=== PATIENT | female | born 1940 | race Caucasian/White ===

== ENCOUNTER 2019-04-08 10:49 | Inpatient (IN) ==
[2019-04-08 13:08] LABS: Basophils # (auto) 0.02 K/uL (0-0.2); Basophils % (auto) 0.2 %; Eosinophils # (auto) 0.21 K/uL (0-0.5); Eosinophils % (auto) 2.1 %; Hematocrit (blood only) 47.5 % (37-47); Hemoglobin 16.4 g/dL (12.0-16.0); Immature Granulocytes # (auto) 0.03 K/uL (0.00-0.02); Immature Granulocytes % (auto) 0.3 %; Lymphocytes # (auto) 2.56 K/uL (1.2-3.4); Lymphocytes % (auto) 25.7 %; Mean Corpuscular Hgb Conc 34.5 g/dL (32-36); Mean Corpuscular Volume 89.8 fL (80-100); Mean Platelet Volume 10.3 fL (7.4-10.4); Monocytes # (auto) 0.57 K/uL (0.11-0.59); Monocytes % (auto) 5.7 %; Neutrophils # (auto) 6.59 K/uL (1.4-6.5); Platelet Count 226 K/uL (130-400); RDW Coefficient of Variation 12.3 % (11.5-14.5); Red Blood Count 5.29 M/uL (4.2-5.4); White Blood Count 9.98 K/uL (4.8-10.8)
[2019-04-08] MEDS ORDERED: ALBUT/IPRATROP 3MG/0.5MG NEB 3 ML VIAL NEB STA ×2 (13:09→16:26)
[2019-04-08] MEDS ORDERED: ONDANSETRON INJ 2 MG/ML 2 ML VIAL IV STA (13:09)
[2019-04-08] MEDS ORDERED: SODIUM CHLORIDE 0.9% 500 ML IV SCH (13:15)
[2019-04-08 13:25] LABS: Albumin Level 3.2 gm/dl (3.4-5.0); BUN Creatinine Ratio 18.1 (10-20); Calcium 8.9 mg/dl (8.5-10.1); Creatinine Clr Calc Pharmacy 58.4 ml/min; Est GFR (African American) 98.5; Potassium 3.3 mmol/L (3.5-5.1)
[2019-04-08 13:28] LABS: Albumin Globulin Ratio 0.7 (0.9-2); Bilirubin,Total 1.2 mg/dl (0.2-1); Globulin 4.3 gm/dl (2.5-4.0); Total Protein 7.5 gm/dl (6.4-8.2)
[2019-04-08 13:29] LABS: Appearance Urine Clear (Clear); Bacteria Urine Automated Negative (Negative); Bilirubin Urine Negative (Negative); Blood Urine 2+ (Negative); Color Urine Yellow; Epithelial Cell Urine Auto >30 /lpf (0-5); Glucose Urine UA Negative (Negative); Ketones Urine Negative (Negative); Leukocyte Esterase Urine 1+ (Negative); Nitrite Urine Negative (Negative); Protein Urine Negative (Negative); Specific Gravity Urine 1.008 (1.000-1.030); Urobilinogen Urine Negative (Negative)
[2019-04-08 13:46] LABS: Troponin I 0.02 ng/ml (0-0.045)
--- NOTE | 2019-04-08 14:17 | XRay Report ---
TWO VIEW CHEST CLINICAL HISTORY: Cough. FINDINGS: PA and lateral chest radiographs are obtained No prior studies are available for comparison at the time of dictation. The cardiomediastinal silhouette is unremarkable noting atherosclerotic ca lcification of the thoracic aorta. There is bibasilar scarring/atelectasis. No airspace consolidation or pleural effusion is identified. There is no pneumothorax. The skeletal structures are osteopenic. Degenerative change is noted throughout the thoracic spine. The bony thorax appears intact. Cholecys tectomy clips are noted in the upper abdomen. IMPRESSION: No active disease in the chest. ACT 112: Negative or not required by law. Electronically signed by: Jimmie Barr M.D. 04/08/2019 2:16 PM
[2019-04-08] MEDS ORDERED: OPTIRAY 320 125ml IV PRN (15:20)
--- NOTE | 2019-04-08 15:37 | CT Scan Report ---
CT ANGIOGRAM OF THE CHEST CLINICAL HISTORY: Hypoxia. O2 sat of 86%. Possible pulmonary embolism. COUGH COMPARISON STUDY: Chest x-ray dated 04/08/2019 TECHNIQUE: Following the IV administration of 118 mL of Optiray-320, CT angiogram of the thorax was p erformed from the thoracic inlet to the lung bases utilizing the pulmonary embolus protocol. Images a re reviewed in the axial, sagittal, and coronal planes. IV contrast was administered without complica tion. MIP imaging was performed. A dose lowering technique was utilized adhering to the principles o f ALARA. CT DOSE: 596.90 mGy.cm FINDINGS: No pathologically enlarged axillary mediastinal or hilar lymph nodes were visualized. There is mild diffuse esophageal wall thickening. Clinical correlation regards to esophagitis is shilo mmended. There is a small hiatal hernia. There was no evidence of thoracic aortic dilatation. There are coronary artery calcifications. There were no pulmonary artery filling defects to indicate acute pulmonary embolism. No pleural effusions are visualized. There are dependent atelectatic changes. There is right middle l obe atelectasis/scarring. There is mild pulmonary emphysema. There is minimal bronchial wall thickeni ng with areas of left lower lobe mucus plugging. IMPRESSION: 1. No evidence of acute pulmonary embolism 2. Mild emphysema. 3. Mild bronchial wall thickening with areas of left lower lobe mucus plugging 4. Nonspecific diffuse esophageal wall thickening. Clinical correlation is advocated. 5. No evidence of pneumonia 6. Scattered areas of interstitial scarring/atelectasis ACT 112: Negative or not required by law. Electronically signed by: Macario Carvalho M.D. 04/08/2019 3:36 PM
--- NOTE | 2019-04-08 16:11 | Electrocardiogram Report ---
Test Reason : Blood Pressure : / mmHG Vent. Rate : 076 BPM Atrial Rate : 076 BPM P-R Int : 140 ms QRS Dur : 132 ms QT Int : 436 ms P-R-T Axes : 071 -46 083 degrees QTc Int : 490 ms Poor data quality, interpretation may be adversely affected Normal sinus rhythm Possible Left atrial enlargement Left axis deviation Left bundle branch block Abnormal ECG No previous ECGs available Confirmed by Xu Gonzalez ([id number]) on 04/08/2019 4:11:16 PM Referred By: REFERRED SELF Confirmed By:Xu Gonzalez
[2019-04-08] MEDS ORDERED: methylPREDNISolone 125 MG/2 ML VIAL IV STA (16:26)
[2019-04-08 17:50] LABS: Magnesium 1.7 mg/dl (1.8-2.4)
--- NOTE | 2019-04-08 18:04 | History & Physical Report ---
Date of Service April 08, 2019 Assessment & Plan (1) COPD exacerbation: (2) Acute respiratory failure with hypoxia: -Admit to [facility] with telemetry -Patient presenting from home with reports of cough and shortness of breath -Noted that patient had been on prednisone 5 mg daily for several years for psoriasis, this was recently discontinued about 3 weeks ago -Patient is an active smoker, 1 pack/day; no history of PFTs in the past however COPD is suspected -CTA chest negative for pulmonary embolism however showing mucus plugging -??? If symptoms caused by recent discontinuation of prednisone -Hypoxic on room air at 88%, this improved with 2 L of oxygen via nasal cannula; may need home O2 eval before discharge -S/p Solu-Medrol 60 mg in the ED, will continue the prednisone 40 mg p.o. daily starting tomorrow -Empiric IV ceftriaxone and doxycycline -Pulmonary toilet with nebs, flutter valve, incentive spirometer, chest PT -Pulmonary consult, input appreciated (3) Nausea vomiting and diarrhea: -Seems to be some component of posttussive emesis -Currently denying any GI complaints -Full liquid diet, advance as tolerated -Stool for C. difficile and culture (4) LBBB (left bundle branch block): (5) QT prolongation: -EKG shows LBBB; no EKGs to compare to at this time -No reports of chest pain -Records request from PCPs office for EKG comparison -QTC 490 -Daily EKG, avoid QTC prolonging agents (6) Hypertension: -BP currently controlled, continue losartan, metoprolol, HCTZ (7) Hyperlipidemia: -Continue statin (8) DVT prophylaxis: -SQ Lovenox History of Present Illness Chief Complaint: Cough, shortness of breath Primary Care Provider: Marjorie Presley 78-year-old female who presents the ED for evaluation of cough and shortness of breath. Patient reports her symptoms began about 2 weeks ago. She reports shortness of breath minimal exertion. She reports a cough productive for white sputum. Patient denies chest pain. Today, patient reports she had some nausea and a couple of episodes of diarrhea. No bright bleeding per rectum or dark tarry stools. She reports some vomiting associated with the coughing. Denies fevers and chills. No lightheadedness, dizziness, diaphoresis, syncopal events. She denies any urinary symptoms. In ED, patient was found to be hypoxic on room air at 88%. This improved with 2 L of oxygen via nasal cannula. CTA chest was negative for pulmonary embolism however show some mucous plugging. Patient was given 2 nebulizer treatments, Solu-Medrol 60 mg, Zofran, IVF. Allergies Allergy/AdvReac Type Severity Reaction Status Date / Time codeine AdvReac Fainting Unverified 04/08/19 12:25 Home Medications Home Medications Medication Instructions Recorded Confirmed Type atorvastatin 20 mg PO HS 04/08/19 04/08/19 History clobetasol 1 applic TOPICAL BID 04/08/19 04/08/19 History ergocalciferol (vitamin D2) 1,250 mcg PO FR 04/08/19 04/08/19 History [Vitamin D2] hydrochlorothiazide 12.5 mg PO DAILY 04/08/19 04/08/19 History hydroxyzine HCl 25 mg PO HS PRN 04/08/19 04/08/19 History losartan 100 mg PO DAILY 04/08/19 04/08/19 History metoprolol succinate 50 mg PO HS 04/08/19 04/08/19 History Past Med/Surg History Medical History COPD (chronic obstructive pulmonary disease) Cystocele Hyperlipidemia Hypertension Tobacco abuse Surgical History H/O rectocele repair History of appendectomy History of hysterectomy Hx of cholecystectomy Hx of tonsillectomy Family History Mother Heart disease Stroke Social History Preferred Language: [place] Communication Ability: Effective Beliefs That Will Affect Care: None Current Living Situation: Spouse Other Information That Helps Us Care for You: No Feels Safe at Home: Yes Safety Concerns: Feels Safe At This Time Smoking Status: Current every day smoker Tobacco Type: cigarettes ; Cigarettes Per Day: PACK/DAY ; Hx Alcohol Use: No Hx Substance Use: No Review of Systems Review of Systems: ROS per HPI, all other systems reviewed and negative Physical Exam Constitutional: WD/WN, vitals as above Eyes: PERRL, conjunctivae normal, anicteric sclerae ENMT: external ear and nose normal, oropharynx normal Respiratory: normal respiratory effort; no respiratory distress Auscultation: + diminished lung sounds and + rhonchi (Scattered) Cardiovascular: Rate/Rhythm: regular rate and regular rhythm Vessels: normal peripheral pulses Extremities: no edema Gastrointestinal (Abdomen): normal bowel sounds, soft, nontender, no hepatosplenomegaly Musculoskeletal: no cyanosis or clubbing, extremities motor strength 5/5 Skin: no rashes, warm and dry Scattered areas of psoriasis Neurologic: PERRL, EOMI, accommodation nl, no face palsy, no dysarthria Psychiatric: A+Ox3, euthymic affect Results & Data Vital Signs (Past 12 Hours) Vital Signs Temp Pulse Pulse Resp BP BP Pulse Ox 04/08/19 17:14 76 18 92 04/08/19 16:46 76 22 148/86 H 94 04/08/19 16:20 80 22 150/83 H 88 L 04/08/19 13:19 80 18 88 L 04/08/19 13:00 79 24 140/91 92 04/08/19 11:10 36.8 C 82 18 152/87 H 90 Code Status & VTE Plan Code Status Patient is a full code as per my discussion with her. VTE Prophylaxis Plan VTE Prophylaxis will be ordered: Yes Supervising Physician Co-Signing Physician Notes I saw this patient with the Nurse Practitioner, I participated in the history, physical, review of systems, and physical exam. I reviewed the medications with the patient and the Nurse Practitioner and helped reconcile the medications. I helped take a detailed family and social history as well. I formulated the assessment and plan personally with the Nurse Practitioner went over it with the patient. Physical Exam Gen-AAO x 3, NAD, Afebrile Head-NCAT, EOMI, PERRLA, Anicteric Sclera, No Posterior Pharyngeal Erythema Neck-Supple, No JVD, No Thyromegaly, No Masses, No LAD, No Bruits Lungs-+Wheezing, +Rhonchi, No Crepitus Chest-No S4, +S1, +S2, No S3, No Murmurs, No Rubs, No Gallops, No Ectopy Abdomen-Soft, Bowel Sounds Present, Non Tender, Non Distended, No Hepatomegaly, No Splenomegaly, No Palpable Masses, No Rebound, No Rigidity, No Guarding Musculoskeletal-Full Range of Motion Bilaterally, No CVAT Extremities-No Cyanosis, No Clubbing, No Edema Nuero-Cranial Nerves II-XII grossly intact, Motor WNL, DTRs WNL, Strength WNL, Non Focal Psych-Normal Mood
--- NOTE | 2019-04-08 18:28 | Emergency Department Note ---
Entered by Reid Marrufo acting as a scribe for Ezequiel Vazquez MD History of Present Illness General Chief complaint: Nausea Stated complaint: NAUSEA, DIARRHEA Time Seen by Provider: 04/08/19 13:02 Source: patient Limitations: no limitations History of Present Illness Onset (ago): day(s) (1.5) Location: abdomen Pain Consistency: + constant Current Pain Intensity: 0 Quality: + constant Associated symptoms: + denies other symptoms (abdominal pain, ), + nausea/vomiting, + shortness of breath and + other (diarrhea, congested, ); no chest pain and no fever/chills (fevers) The patient is a 78 year old female who presents to the Emergency Room with complaints of constant nausea starting 1.5 weeks ago. The patient states she has been having nausea and diarrhea for 1.5 weeks. She states the last time she had diarrhea was this morning when she had two episodes. She notes she has been having diarrhea multiple times a day. She states she vomited a couple times in the past 1.5 weeks, and notes the last time she vomited was yesterday. She notes she was short of breath yesterday. She notes she feels congested and feels like she has a cold. She states she probably has COPD and smokes a pack a day. She was never diagnosed with COPD but she just assumes she has it due to her long smoking history. The patient denies having chest pain, abdominal pain, fevers, recent travel, and having any pain. The patient denies using inhalers and taking antibiotics in the past month. She notes she has had a cough for a year. Home Medications Home Medications Medication Instructions Recorded Confirmed Type atorvastatin 20 mg PO HS 04/08/19 04/08/19 History clobetasol 1 applic TOPICAL BID 04/08/19 04/08/19 History ergocalciferol (vitamin D2) 1,250 mcg PO FR 04/08/19 04/08/19 History [Vitamin D2] hydrochlorothiazide 12.5 mg PO DAILY 04/08/19 04/08/19 History hydroxyzine HCl 25 mg PO HS PRN 04/08/19 04/08/19 History losartan 100 mg PO DAILY 04/08/19 04/08/19 History metoprolol succinate 50 mg PO HS 04/08/19 04/08/19 History Allergies Allergy/AdvReac Type Severity Reaction Status Date / Time codeine AdvReac Fainting Unverified 04/08/19 12:25 Past Med/Surg History Medical History COPD (chronic obstructive pulmonary disease) Cystocele Hyperlipidemia Hypertension Tobacco abuse Surgical History H/O rectocele repair History of appendectomy History of hysterectomy Hx of cholecystectomy Hx of tonsillectomy Family History Mother Heart disease Stroke Social History Preferred Language: [place] Communication Ability: Effective Beliefs That Will Affect Care: None Current Living Situation: Spouse Other Information That Helps Us Care for You: No Feels Safe at Home: Yes Safety Concerns: Feels Safe At This Time Smoking Status: Current every day smoker Tobacco Type: cigarettes ; Cigarettes Per Day: PACK/DAY ; Hx Alcohol Use: No Hx Substance Use: No Review of Systems See HPI for pertinent positives & negatives. and A total of 10 systems reviewed and were otherwise negative Physical Exam Vital Signs Vital Signs - 24 hr 04/08/19 11:10 04/08/19 13:00 04/08/19 13:19 Temperature 36.8 C Temperature Source Oral Pulse Rate 82 Pulse Rate [Apical] 79 80 Respiratory Rate 18 24 18 Respiratory Effort / Characteristics Non-Labored Spontaneous Non-Labored Spontaneous Non-Labored Spontaneous Respiratory Depth Normal Normal Respiratory Pattern Regular Blood Pressure 152/87 H Blood Pressure [Right Arm] 140/91 Blood Pressure Mean 108 Blood Pressure Mean [Right Arm] 107 Blood Pressure Position [Right Arm] Lying Pulse Oximetry 90 92 88 L Oxygen Delivery Method Room Air Room Air Room Air Oxygen Flow Rate Sepsis Recent Fever Within 48 Hours No Sepsis New/Unexplained Change in Mental Status No Sepsis Action Taken by Nursing No Action Required 04/08/19 16:20 04/08/19 16:46 04/08/19 17:14 Temperature Temperature Source Pulse Rate Pulse Rate [Apical] 80 76 76 Respiratory Rate 22 22 18 Respiratory Effort / Characteristics Non-Labored Spontaneous Respiratory Depth Respiratory Pattern Blood Pressure Blood Pressure [Right Arm] 150/83 H 148/86 H Blood Pressure Mean Blood Pressure Mean [Right Arm] 105 106 Blood Pressure Position [Right Arm] Pulse Oximetry 88 L 94 92 Oxygen Delivery Method Room Air Nasal Cannula Nasal Cannula Oxygen Flow Rate 2 2 Sepsis Recent Fever Within 48 Hours Sepsis New/Unexplained Change in Mental Status Sepsis Action Taken by Nursing 04/08/19 18:00 Temperature Temperature Source Pulse Rate Pulse Rate [Apical] 83 Respiratory Rate 22 Respiratory Effort / Characteristics Non-Labored Spontaneous Respiratory Depth Normal Respiratory Pattern Blood Pressure Blood Pressure [Right Arm] 132/69 Blood Pressure Mean Blood Pressure Mean [Right Arm] 90 Blood Pressure Position [Right Arm] Lying Pulse Oximetry 91 Oxygen Delivery Method Nasal Cannula Oxygen Flow Rate 2 Sepsis Recent Fever Within 48 Hours Sepsis New/Unexplained Change in Mental Status Sepsis Action Taken by Nursing Constitutional: Vital signs reviewed. Eyes: Pupils are equal round reactive to light. Conjunctiva are noninjected. ENT: Pharynx is clear without erythema or exudate. Mucous membranes are dry. Neck supple without meningeal signs. Respiratory: Breath sounds are equal bilaterally. Expiratory wheezes bilaterally, greater on the left side. Cardiovascular: Regular rate and rhythm. No rubs or gallops. GI: Soft, nondistended and nontender. Bowel sounds are present. Musculoskeletal: No peripheral edema. No lower extremity tenderness. Integumentary: No cyanosis. Neurological: The patient is awake and alert. No focal deficits. Psychiatric: Normal affect. Course Course 1304: The patient was evaluated in room B12B, and a complete history and physical examination were performed. 1421: I reevaluated the patient. She states she feels better. She had improvement of her wheezing on exam. Pulse Ox dropped to 86 on room air. She is agreeable to getting a CT of her chest. 1625: The patient's pulse ox is 86 percent on room air. I talked about test results with the patient. She is agreeable to hospitalization. 1637: I discussed the patient's case with Tran PINO. Dr. Jose Mcguire Hospitalist, will evaluate the patient for further management. Administered Medications Ioversol (Optiray 320 125ml) 118 ml IV ONCE PRN PRN Reason: Interaction Checking Stop: 04/12/19 15:19 Last Admin: 04/08/19 15:20 Dose: 1 ml Documented by: [id number] Discontinued Medications Albuterol (Duoneb) 3 ml NEB NOW STA Stop: 04/08/19 13:10 Last Admin: 04/08/19 13:18 Dose: 3 ml Documented by: [id number] Albuterol (Duoneb) 3 ml NEB NOW STA Stop: 04/08/19 16:27 Last Admin: 04/08/19 17:12 Dose: 3 ml Documented by: [id number] Sodium Chloride (Nss) 500 mls @ 999 mls/hr IV .Q31M SALMA Stop: 04/08/19 13:45 Last Infusion: 04/08/19 14:38 Dose: 0 mls/hr Documented by: [id number] Admin: 04/08/19 13:46 Dose: 999 mls/hr Documented by: [id number] Methylprednisolone (Solumedrol) 60 mg IV NOW STA Stop: 04/08/19 16:27 Last Admin: 04/08/19 16:32 Dose: 60 mg Documented by: [id number] Ondansetron HCl (Zofran) 4 mg IV NOW STA Stop: 04/08/19 13:10 Last Admin: 04/08/19 13:46 Dose: 4 mg Documented by: [id number] Medical Decision Making Differential Diagnosis Differential Diagnosis includes but is not limited to food borne illness, gastroenteritis, dehydration, pneumonia, COPD, and cardiac. Medical Records Attestation: I reviewed the patient's medical records. I did perform a limited focused review of portions of the patient's old chart on the electronic medical record. The patient has had no recent pertinent visits to this hospital. Home Medications Current Medication List: was personally reviewed by me Laboratory Data Attestation: I reviewed the patient's lab results. Result diagrams: 04/08/19 12:46 04/08/19 12:46 Lab Results 04/08/19 04/08/19 04/08/19 Range/Units 12:46 12:46 12:46 WBC 9.98 (4.8-10.8) K/uL RBC 5.29 (4.2-5.4) M/uL Hgb 16.4 H (12.0-16.0) g/dL Hct 47.5 H (37-47) % MCV 89.8 (80-100) fL MCH 31.0 (25-34) pg MCHC 34.5 (32-36) g/dL RDW Std Deviation 40.0 (36.4-46.3) fL RDW Coeff of Khushbu 12.3 (11.5-14.5) % Plt Count 226 (130-400) K/uL MPV 10.3 (7.4-10.4) fL Immature Gran % (Auto) 0.3 % Neut % (Auto) 66.0 % Lymph % (Auto) 25.7 % [place] % (Auto) 5.7 % Eos % (Auto) 2.1 % Baso % (Auto) 0.2 % Immature Gran # (Auto) 0.03 H (0.00-0.02) K/uL Neut # (Auto) 6.59 H (1.4-6.5) K/uL Lymph # (Auto) 2.56 (1.2-3.4) K/uL [place] # (Auto) 0.57 (0.11-0.59) K/uL Eos # (Auto) 0.21 (0-0.5) K/uL Baso # (Auto) 0.02 (0-0.2) K/uL Sodium 136 (136-145) mmol/L Potassium 3.3 L (3.5-5.1) mmol/L Chloride 99 (98-107) mmol/L Carbon Dioxide 33 H (21-32) mmol/L Anion Gap 4.0 (3-11) BUN 12 (7-18) mg/dl Creatinine 0.68 (0.6-1.2) mg/dl Est Cr Clr Drug Dosing 58.4 ml/min Est GFR ( Amer) 98.5 Est GFR (Non-Af Amer) 85.0 BUN/Creatinine Ratio 18.1 (10-20) Glucose 105 H (70-99) mg/dl Calcium 8.9 (8.5-10.1) mg/dl Magnesium 1.7 L (1.8-2.4) mg/dl Total Bilirubin 1.2 H (0.2-1) mg/dl AST 20 (15-37) U/L ALT 12 (12-78) U/L Alkaline Phosphatase 79 (45-117) U/L Troponin I 0.020 (0-0.045) ng/ml Total Protein 7.5 (6.4-8.2) gm/dl Albumin 3.2 L (3.4-5.0) gm/dl Globulin 4.3 H (2.5-4.0) gm/dl Albumin/Globulin Ratio 0.7 L (0.9-2) Lipase 104 (73-393) U/L Urine Color Urine Appearance (Clear) Urine pH (4.5-7.5) Ur Specific [place] (1.000-1.030) Urine Protein (Negative) Urine Glucose (UA) (Negative) Urine Ketones (Negative) Urine Blood (Negative) Urine Nitrite (Negative) Urine Bilirubin (Negative) Urine Urobilinogen (Negative) Ur Leukocyte Esterase (Negative) Urine WBC (Auto) (0-5) /hpf Urine RBC (Auto) (0-4) /hpf U Hyaline Cast (Auto) (0-5) /lpf U Epithel Cells (Auto) (0-5) /lpf Urine Bacteria (Auto) (Negative) 04/08/19 Range/Units 12:47 WBC (4.8-10.8) K/uL RBC (4.2-5.4) M/uL Hgb (12.0-16.0) g/dL Hct (37-47) % MCV (80-100) fL MCH (25-34) pg MCHC (32-36) g/dL RDW Std Deviation (36.4-46.3) fL RDW Coeff of Khushbu (11.5-14.5) % Plt Count (130-400) K/uL MPV (7.4-10.4) fL Immature Gran % (Auto) % Neut % (Auto) % Lymph % (Auto) % [place] % (Auto) % Eos % (Auto) % Baso % (Auto) % Immature Gran # (Auto) (0.00-0.02) K/uL Neut # (Auto) (1.4-6.5) K/uL Lymph # (Auto) (1.2-3.4) K/uL [place] # (Auto) (0.11-0.59) K/uL Eos # (Auto) (0-0.5) K/uL Baso # (Auto) (0-0.2) K/uL Sodium (136-145) mmol/L Potassium (3.5-5.1) mmol/L Chloride (98-107) mmol/L Carbon Dioxide (21-32) mmol/L Anion Gap (3-11) BUN (7-18) mg/dl Creatinine (0.6-1.2) mg/dl Est Cr Clr Drug Dosing ml/min Est GFR ( Amer) Est GFR (Non-Af Amer) BUN/Creatinine Ratio (10-20) Glucose (70-99) mg/dl Calcium (8.5-10.1) mg/dl Magnesium (1.8-2.4) mg/dl Total Bilirubin (0.2-1) mg/dl AST (15-37) U/L ALT (12-78) U/L Alkaline Phosphatase (45-117) U/L Troponin I (0-0.045) ng/ml Total Protein (6.4-8.2) gm/dl Albumin (3.4-5.0) gm/dl Globulin (2.5-4.0) gm/dl Albumin/Globulin Ratio (0.9-2) Lipase (73-393) U/L Urine Color Yellow Urine Appearance Clear (Clear) Urine pH 6.0 (4.5-7.5) Ur Specific [place] 1.008 (1.000-1.030) Urine Protein Negative (Negative) Urine Glucose (UA) Negative (Negative) Urine Ketones Negative (Negative) Urine Blood 2+ H (Negative) Urine Nitrite Negative (Negative) Urine Bilirubin Negative (Negative) Urine Urobilinogen Negative (Negative) Ur Leukocyte Esterase 1+ H (Negative) Urine WBC (Auto) 1-5 (0-5) /hpf Urine RBC (Auto) 5-10 H (0-4) /hpf U Hyaline Cast (Auto) 1-5 (0-5) /lpf U Epithel Cells (Auto) >30 H (0-5) /lpf Urine Bacteria (Auto) Negative (Negative) Imaging Data Radiologist's Impression: Radiology results as stated below per my review and the radiologist's interpretation: TWO VIEW CHEST CLINICAL HISTORY: Cough. FINDINGS: PA and lateral chest radiographs are obtained No prior studies are available for comparison at the time of dictation. The cardiomediastinal silhouette is unremarkable noting atherosclerotic calcification of the thoracic aorta. There is bibasilar scarring/atelectasis. No airspace consolidation or pleural effusion is identified. There is no pneumothorax. The skeletal structures are osteopenic. Degenerative change is noted throughout the thoracic spine. The bony thorax appears intact. Cholecystectomy clips are noted in the upper abdomen. IMPRESSION: No active disease in the chest. ACT 112: Negative or not required by law. Electronically signed by: Jimmie Barr M.D. 04/08/2019 2:[address] ANGIOGRAM OF THE CHEST CLINICAL HISTORY: Hypoxia. O2 sat of 86%. Possible pulmonary embolism. COUGH COMPARISON STUDY: Chest x-ray dated 04/08/2019 TECHNIQUE: Following the IV administration of 118 mL of Optiray-320, CT angiogram of the thorax was performed from the thoracic inlet to the lung bases utilizing the pulmonary embolus protocol. Images are reviewed in the axial, sagittal, and coronal planes. IV contrast was administered without complication. MIP imaging was performed. A dose lowering technique was utilized adhering to the principles of ALARA. CT DOSE: 596.90 mGy.cm FINDINGS: No pathologically enlarged axillary mediastinal or hilar lymph nodes were visualized. There is mild diffuse esophageal wall thickening. Clinical correlation regards to esophagitis is recommended. There is a small hiatal hernia. There was no evidence of thoracic aortic dilatation. There are coronary artery calcifications. There were no pulmonary artery filling defects to indicate acute pulmonary embolism. No pleural effusions are visualized. There are dependent atelectatic changes. There is right middle lobe atelectasis/scarring. There is mild pulmonary e mphysema. There is minimal bronchial wall thickening with areas of left lower lobe mucus plugging. IMPRESSION: 1. No evidence of acute pulmonary embolism 2. Mild emphysema. 3. Mild bronchial wall thickening with areas of left lower lobe mucus plugging 4. Nonspecific diffuse esophageal wall thickening. Clinical correlation is advocated. 5. No evidence of pneumonia 6. Scattered areas of interstitial scarring/atelectasis ACT 112: Negative or not required by law. Electronically signed by: Macario Carvalho M.D. 04/08/2019 3:36 PM ECG Data Attestation: I personally reviewed and interpreted this ECG as follows: Indication: + nausea Rate (beats per minute): 76 Rhythm: + normal sinus ECG Intervals/blocks: + Left bundle branch block ECG Leslie: + Left axis deviation ECG Findings: + Other (No signs of ischemia per sgarbossa criteria) Comparison ECG Date: no prior available Blood Pressure Blood Pressure Findings: Elevated blood pressure Blood Pressure Disposition: further management by hospitalist [facility] Narrative I did evaluate the patient as noted above. The patient is presenting with vomiting and diarrhea. She has no abdominal pain to suggest an acute surgical process. She also complains of shortness of breath and on examination is noted to have a pulse ox of 88 on room air. She thinks she probably has COPD but was never diagnosed with it. She continues to smoke a pack per day. She has had a cough but states that it has been going on for years. IV access was established. The patient was placed on a continuous monitor car operator. She was given supplemental oxygen via nasal cannula at 2 L/min. I also treated her with a DuoNeb. Did treat the patient with normal saline IV and Zofran IV. I did order and personally review the patient's 12-lead EKG as described above. Her twelve-lead EKG shows a left bundle branch block. No old EKGs available for comparison. I did order and personally reviewed the images of the patient's chest x-ray as described above. There is no evidence of pneumonia. I did order and review the patient's blood work as noted in the electronic medical record. She has mild hypokalemia. Her white count is not elevated. Her hemoglobin is elevated which may be from hemoconcentration. I did reassess the patient. She has improvement of her wheezing but still has hypoxemia based on her O2 sat. I did wait some time and rechecked it. I want to make sure that she just did not have VQ mismatch from the beta agonist. On recheck she continued to have hypoxemia and had an O2 saturation of 86%. She was placed back on supplemental oxygen. I did treat her with a another DuoNeb and Solu-Medrol IV. I did recommend hospitalization. I did discuss the case with the hospitalist and case hardener. Impression & Plan Hypoxia, COPD exacerbation, Bronchitis, Vomiting and diarrhea, Left bundle branch block Discharge Plan Visit Data Chief Complaint: Nausea Stated Complaint: NAUSEA, DIARRHEA ED Provider: Ezequiel Vazquez Discharge Problem: Hypoxia, COPD exacerbation, Bronchitis, Vomiting and diarrhea, Left bundle branch block Patient Disposition: Being Evaluated by Hospitalist Discharge Instructions Interventions: ED Discharge Assessment Last Done: 04/08/19 18:02 Forms Stand Alone Forms: My [facility] [employer] Prescriptions Prescriptions: No Action atorvastatin 20 mg tablet 20 mg PO HS RF: 0 metoprolol succinate 50 mg tablet extended release 24 hr 50 mg PO HS RF: 0 hydrochlorothiazide 12.5 mg capsule 12.5 mg PO DAILY RF: 0 hydroxyzine HCl 25 mg Tablet 25 mg PO HS PRN (Reason: Itching) RF: 0 ergocalciferol (vitamin D2) [Vitamin D2] 1,250 mcg (50,000 unit) Capsule 1,250 mcg PO FR RF: 0 losartan 100 mg tablet 100 mg PO DAILY RF: 0 clobetasol 0.05 % ointment 1 applic TOPICAL BID RF: 0 Referrals Referrals: Marjorie Presley [Primary Care Provider] - The scribe's documentation has been prepared under my direction and personally reviewed by me in its entirety. I confirm that the note above accurately reflects all work, treatment, procedures, and medical decision making performed by me.
[2019-04-08] MEDS ORDERED: ACETAMINOPHEN 325 MG TAB PO PRN (19:09)
[2019-04-08] MEDS ORDERED: MAGNESIUM SULFATE / D5W 1 GM/100 ML BAG IV ONE (19:30)
[2019-04-08] MEDS: ALBUT/IPRATROP 3MG/0.5MG NEB 3 ML VIAL NEB SCH (19:41)
[2019-04-08] MEDS ORDERED: POTASSIUM CHLORIDE 20 MEQ TABCR PO ONE (19:45)
[2019-04-08] MEDS: ENOXAPARIN INJ 40 MG/0.4 ML SYR SQ SCH (20:06)
[2019-04-08] MEDS: METOPROLOL SUCC 50MG EXT REL TAB PO SCH (20:06)
[2019-04-08] MEDS: ATORVASTATIN 20 MG TAB PO SCH (20:08)
[2019-04-08] MEDS: cefTRIAXone SODIUM 1,000 MG in DEXTROSE 5% 50 ML IV SCH (21:04)
[2019-04-08] MEDS: DOXYCYCLINE HYCLATE 100 MG in DEXTROSE 5% 100 ML IV SCH (21:06)
[2019-04-09 06:00] LABS: Hematocrit (blood only) 42.2 % (37-47); Hemoglobin 14.3 g/dL (12.0-16.0); Mean Corpuscular Hemoglobin 30.5 pg (25-34); Mean Corpuscular Hgb Conc 33.9 g/dL (32-36); Mean Platelet Volume 9.9 fL (7.4-10.4); Platelet Count 227 K/uL (130-400); RDW Coefficient of Variation 12.6 % (11.5-14.5); RDW Standard Deviation 41.2 fL (36.4-46.3); Red Blood Count 4.69 M/uL (4.2-5.4); White Blood Count 7.62 K/uL (4.8-10.8)
[2019-04-09 06:36] LABS: BUN Creatinine Ratio 14.6 (10-20); Calcium 8.2 mg/dl (8.5-10.1); Creatinine Clr Calc Pharmacy 56.8 ml/min; Est GFR (African American) 97.5; Est GFR (Non-African American) 84.2; Magnesium 1.9 mg/dl (1.8-2.4); Potassium 3.6 mmol/L (3.5-5.1)
[2019-04-09] MEDS: ALBUT/IPRATROP 3MG/0.5MG NEB 3 ML VIAL NEB SCH ×4 (07:12→19:22)
--- NOTE | 2019-04-09 08:12 | Pulmonary Consultation ---
Date of Consultation April 09, 2019 Assessment & Plan (1) Acute respiratory failure with hypoxia: -- Acute Hypoxic respiratory failure Likely sec to COPD exacerbation Continue with inhaled bronchodilators, steroids, antibiotics. Mucomyst and guaifenesin. Maintain SPO2 between 88 to 92% BiPAP nightly and as needed shortness of breath CTA chest 04/08/2019 personally reviewed: There is hyperinflation, no mediastinal lymphadenopathy noted, no clear infiltrate appreciated. Mild emphysema. There is foreign material appreciated in the trachea could be aspiration. --COPD/emphysema Patient is not on any inhalers at home Recommend discharging the patient on lama inhaler Patient will benefit from pulmonary follow-up for outpatient pulmonary function tests -- Active smoker Greater than [id number] smoking history Advised to quit Patient made aware that she will be given help and medication if if she wants. Recommend sending her to smoking cessation program. -- Possible aspiration Will order videofluoroscopy eval Please note the above document was generated using voice recognition software. It may contain grammatical, syntax or spelling errors. (2) COPD exacerbation: History of Present Illness Attending Physician: Neel Lutz MD History of Present Illness 78-year-old female with past medical history of COPD, dyslipidemia, hypertension, active smoker comes to the hospital with complaints of cough with greenish-yellow phlegm going on since last for 4days. Associated with shortness of breath. Patient denies any chest pain. No headache, no blurry vision. No recent upper respiratory infection. No runny nose, noted tearing from the eyes. Patient did complain of diarrhea couple of episodes prior to coming to the hospital. Positive subjective fever and chills. No weight loss, no night sweats. Patient denies any difficulty swallowing. But she does complain that she coughs whenever she eats. No odynophagia. Social history: [id number] smoking history, active smoker, denies any illicit drug use, social alcohol. No poultry or birds at home. Does not stay on a farm Allergies Allergy/AdvReac Type Severity Reaction Status Date / Time codeine AdvReac Fainting Unverified 04/08/19 12:25 Home Medications Home Medications Medication Instructions Recorded Confirmed Type atorvastatin 20 mg PO HS 04/08/19 04/08/19 History clobetasol 1 applic TOPICAL BID 04/08/19 04/08/19 History ergocalciferol (vitamin D2) 1,250 mcg PO FR 04/08/19 04/08/19 History [Vitamin D2] hydrochlorothiazide 12.5 mg PO DAILY 04/08/19 04/08/19 History hydroxyzine HCl 25 mg PO HS PRN 04/08/19 04/08/19 History losartan 100 mg PO DAILY 04/08/19 04/08/19 History metoprolol succinate 50 mg PO HS 04/08/19 04/08/19 History Patient History Medical History COPD (chronic obstructive pulmonary disease) Cystocele Hyperlipidemia Hypertension Tobacco abuse Surgical History H/O rectocele repair History of appendectomy History of hysterectomy Hx of cholecystectomy Hx of tonsillectomy Family History Mother Heart disease Stroke Social History Preferred Language: Peruvian Communication Ability: Effective Beliefs That Will Affect Care: None Current Living Situation: Spouse Other Information That Helps Us Care for You: No Feels Safe at Home: Yes Safety Concerns: Feels Safe At This Time Smoking Status: Current every day smoker Tobacco Type: cigarettes ; Cigarettes Per Day: PACK/DAY ; Hx Alcohol Use: No Hx Substance Use: No Review of Systems Review of Systems: All systems reviewed & are unremarkable except as noted in HPI & below Physical Exam Physical Exam: Constitutional: No acute distress HEENT: EOMI, PERRLA Respiratory system: Decreased air entry bilaterally, positive rhonchi, positive mild expiratory wheeze, no crackles CVS: S1-S2 positive, no murmurs or gallops Abdomen: Soft, nontender, nondistended, positive bowel sounds x4 Extremities: +2 pulses bilaterally radialis/ dorsalis pedis, no cyanosis, no edema Neuro: Awake alert oriented x3 Psych: Normal mood and affect G/U: No Lua Skin: no rashes, warm and dry Lymphatic: no cervical or axillary lymphadenopathy Results & Data ([facility]) Vital Signs (Past 12 Hours) Vital Signs Temp Pulse Pulse Resp BP BP Pulse Ox 04/09/19 07:36 63 04/09/19 07:32 36.8 C 68 20 154/73 H 91 04/09/19 07:12 77 18 95 04/09/19 03:42 36.7 C 70 20 113/70 93 04/08/19 23:58 36.9 C 62 18 91/61 L 95 04/08/19 23:53 67 04/08/19 21:58 88 PG Care Time/CCT Total # of Minutes Spent Total Time Spent with Patient: Total time spent is greater than 50% in coordination of care (as documented) at patient's floor/unit and/or counseling patient: [place] [address] Initial Inpt Care Lvl 3 Patient Type New Diagnoses Acute respiratory failure with hypoxia J96.01 COPD exacerbation J44.1
[2019-04-09] MEDS: LOSARTAN POTASSIUM 50 MG TAB PO SCH (08:23)
[2019-04-09] MEDS: hydroCHLOROthiazide 25 MG TAB PO SCH (08:23)
[2019-04-09] MEDS: DOXYCYCLINE HYCLATE 100 MG in DEXTROSE 5% 100 ML IV SCH ×2 (08:23→20:01)
[2019-04-09] MEDS: predniSONE 20 MG TAB PO SCH (08:23)
[2019-04-09] MEDS: ACETYLCYSTEINE 20% INHAL SOLN 4ML ***DISPENSED BY RESP. INH SCH ×2 (11:01→19:23)
[2019-04-09] MEDS: guaiFENesin 600 MG TABCR PO SCH ×2 (11:10→20:05)
[2019-04-09] MEDS ORDERED: POTASSIUM CHLORIDE 20 MEQ TABCR PO STA (11:22)
--- NOTE | 2019-04-09 11:22 | Hospitalist Progress Note ---
Date of Service April 09, 2019 Assessment & Plan (1) COPD exacerbation: (2) Acute respiratory failure with hypoxia: -Admitted to [facility] with telemetry - secondary to likely COPD exacerb., and concern for poss. aspiration -Patient presenting from home with reports of cough and shortness of breath -Noted that patient had been on prednisone 5 mg daily for several years for psoriasis, this was recently discontinued about 3 weeks ago -Patient is an active smoker, 1 pack/day; no history of PFTs in the past however COPD is suspected -CTA chest negative for pulmonary embolism however showing mucus plugging -??? If symptoms caused by recent discontinuation of prednisone -Hypoxic on room air at 88%, this improved with 2 L of oxygen via nasal cannula; may need home O2 eval before discharge -S/p Solu-Medrol 60 mg in the ED, will continue the prednisone 40 mg p.o. daily starting tomorrow -Empiric IV ceftriaxone and doxycycline -Pulmonary toilet with nebs, flutter valve, incentive spirometer, chest PT -Pulmonary consult, input appreciated - started pt on acetylcystein, mucinex, fluoro to eval for aspiration, Maintain SPO2 between 88 to 92%, pt will need pulmonary outpt follow up and testing, plan to d/c on lama (tiotropium) (3) Nausea vomiting and diarrhea: -Seems to be some component of posttussive emesis -Currently denying any GI complaints -Full liquid diet, advance as tolerated -Stool for C. difficile and culture (4) LBBB (left bundle branch block): (5) QT prolongation: -EKG shows LBBB; no EKGs to compare to at time of admission - obtained EKG from outpt PCP, which shows NSR, no known dg. of LBBB, however most recent EKG several years ago -No reports of chest pain -mild trop elevation at 0.02, will repeat troponin and will order echo -QTC 490 -Daily EKG, avoid QTC prolonging agents (6) Hypertension: -BP currently controlled, continue losartan, metoprolol, HCTZ (7) Hyperlipidemia: -Continue statin (8) DVT prophylaxis: -SQ Lovenox Admission and Anticipated Discharge Date Admission Date: April 08, 2019 Subjective Pt is lying in bed in NAD, on 2L NC. Does not use oxygen at home. Family at the bedside. Currently denies any fever, chills, chest pain, incr. shortness of breath, abd. pain, nausea or vomiting. Review of Systems Review of Systems: All systems reviewed & are unremarkable except as noted in HPI & below Constitutional: no fever and no chills Respiratory: no dyspnea (but on suppl. O2) Cardiovascular: no chest pain and no palpitations Gastrointestinal: no abdominal pain, no nausea and no vomiting Physical Exam Physical Exam: Constitutional: elderly female lying in bed, in NAD, on 2 L NC WD/WN Eyes: PERRL, conjunctivae normal, anicteric sclerae ENMT: external ear and nose normal, oropharynx normal Respiratory: normal respiratory effort; no respiratory distress Auscultation: + diminished lung sounds and + rhonchi (Scattered),mild exp. wheezes Cardiovascular: Rate/Rhythm: regular rate and regular rhythm Vessels: normal peripheral pulses Extremities: no edema Gastrointestinal (Abdomen): normal bowel sounds, soft, nontender, nondistended Musculoskeletal: no cyanosis or clubbing, extremities motor strength 5/5, moves extremities spontaneously Skin: no rashes, warm and dry Scattered areas of psoriasis Neurologic: PERRL, EOMI, accommodation nl, no face palsy, no dysarthria Psychiatric: A+Ox3, euthymic affect Results & Data ([facility]) Vital Signs (Past 12 Hours) Vital Signs Temp Pulse Pulse Resp BP BP Pulse Ox 04/09/19 11:02 68 18 98 04/09/19 07:36 63 04/09/19 07:32 36.8 C 68 20 154/73 H 91 04/09/19 07:12 77 18 95 04/09/19 03:42 36.7 C 70 20 113/70 93 04/08/19 23:58 36.9 C 62 18 91/61 L 95 04/08/19 23:53 67 Laboratory Results 04/09/19 04/09/19 04/09/19 Range/Units 09:45 05:31 05:31 WBC 7.62 (4.8-10.8) K/uL RBC 4.69 (4.2-5.4) M/uL Hgb 14.3 (12.0-16.0) g/dL Hct 42.2 (37-47) % MCV 90.0 (80-100) fL MCH 30.5 (25-34) pg MCHC 33.9 (32-36) g/dL RDW Std Deviation 41.2 (36.4-46.3) fL RDW Coeff of Khushbu 12.6 (11.5-14.5) % Plt Count 227 (130-400) K/uL MPV 9.9 (7.4-10.4) fL Immature Gran % (Auto) % Neut % (Auto) % Lymph % (Auto) % Chase % (Auto) % Eos % (Auto) % Baso % (Auto) % Immature Gran # (Auto) (0.00-0.02) K/uL Neut # (Auto) (1.4-6.5) K/uL Lymph # (Auto) (1.2-3.4) K/uL Chase # (Auto) (0.11-0.59) K/uL Eos # (Auto) (0-0.5) K/uL Baso # (Auto) (0-0.2) K/uL Sodium 139 (136-145) mmol/L Potassium 3.6 (3.5-5.1) mmol/L Chloride 104 (98-107) mmol/L Carbon Dioxide 30 (21-32) mmol/L Anion Gap 5.0 (3-11) BUN 10 (7-18) mg/dl Creatinine 0.70 (0.6-1.2) mg/dl Est Cr Clr Drug Dosing 56.8 ml/min Est GFR ( Amer) 97.5 Est GFR (Non-Af Amer) 84.2 BUN/Creatinine Ratio 14.6 (10-20) Glucose 92 (70-99) mg/dl Calcium 8.2 L (8.5-10.1) mg/dl Magnesium 1.9 (1.8-2.4) mg/dl Total Bilirubin (0.2-1) mg/dl AST (15-37) U/L ALT (12-78) U/L Alkaline Phosphatase (45-117) U/L Troponin I (0-0.045) ng/ml Total Protein (6.4-8.2) gm/dl Albumin (3.4-5.0) gm/dl Globulin (2.5-4.0) gm/dl Albumin/Globulin Ratio (0.9-2) Lipase (73-393) U/L Urine Color Urine Appearance (Clear) Urine pH (4.5-7.5) Ur Specific [place] (1.000-1.030) Urine Protein (Negative) Urine Glucose (UA) (Negative) Urine Ketones (Negative) Urine Blood (Negative) Urine Nitrite (Negative) Urine Bilirubin (Negative) Urine Urobilinogen (Negative) Ur Leukocyte Esterase (Negative) Urine WBC (Auto) (0-5) /hpf Urine RBC (Auto) (0-4) /hpf U Hyaline Cast (Auto) (0-5) /lpf U Epithel Cells (Auto) (0-5) /lpf Urine Bacteria (Auto) (Negative) Stl C. diff Tox B Gene Negative Cdiff Gene (Neg) 04/08/19 04/08/19 04/08/19 Range/Units 12:47 12:46 12:46 WBC (4.8-10.8) K/uL RBC (4.2-5.4) M/uL Hgb (12.0-16.0) g/dL Hct (37-47) % MCV (80-100) fL MCH (25-34) pg MCHC (32-36) g/dL RDW Std Deviation (36.4-46.3) fL RDW Coeff of Khushbu (11.5-14.5) % Plt Count (130-400) K/uL MPV (7.4-10.4) fL Immature Gran % (Auto) % Neut % (Auto) % Lymph % (Auto) % Chase % (Auto) % Eos % (Auto) % Baso % (Auto) % Immature Gran # (Auto) (0.00-0.02) K/uL Neut # (Auto) (1.4-6.5) K/uL Lymph # (Auto) (1.2-3.4) K/uL Chase # (Auto) (0.11-0.59) K/uL Eos # (Auto) (0-0.5) K/uL Baso # (Auto) (0-0.2) K/uL Sodium 136 (136-145) mmol/L Potassium 3.3 L (3.5-5.1) mmol/L Chloride 99 (98-107) mmol/L Carbon Dioxide 33 H (21-32) mmol/L Anion Gap 4.0 (3-11) BUN 12 (7-18) mg/dl Creatinine 0.68 (0.6-1.2) mg/dl Est Cr Clr Drug Dosing 58.4 ml/min Est GFR ( Amer) 98.5 Est GFR (Non-Af Amer) 85.0 BUN/Creatinine Ratio 18.1 (10-20) Glucose 105 H (70-99) mg/dl Calcium 8.9 (8.5-10.1) mg/dl Magnesium 1.7 L (1.8-2.4) mg/dl Total Bilirubin 1.2 H (0.2-1) mg/dl AST 20 (15-37) U/L ALT 12 (12-78) U/L Alkaline Phosphatase 79 (45-117) U/L Troponin I 0.020 (0-0.045) ng/ml Total Protein 7.5 (6.4-8.2) gm/dl Albumin 3.2 L (3.4-5.0) gm/dl Globulin 4.3 H (2.5-4.0) gm/dl Albumin/Globulin Ratio 0.7 L (0.9-2) Lipase 104 (73-393) U/L Urine Color Yellow Urine Appearance Clear (Clear) Urine pH 6.0 (4.5-7.5) Ur Specific [place] 1.008 (1.000-1.030) Urine Protein Negative (Negative) Urine Glucose (UA) Negative (Negative) Urine Ketones Negative (Negative) Urine Blood 2+ H (Negative) Urine Nitrite Negative (Negative) Urine Bilirubin Negative (Negative) Urine Urobilinogen Negative (Negative) Ur Leukocyte Esterase 1+ H (Negative) Urine WBC (Auto) 1-5 (0-5) /hpf Urine RBC (Auto) 5-10 H (0-4) /hpf U Hyaline Cast (Auto) 1-5 (0-5) /lpf U Epithel Cells (Auto) >30 H (0-5) /lpf Urine Bacteria (Auto) Negative (Negative) Stl C. diff Tox B Gene (Neg) 04/08/19 Range/Units 12:46 WBC 9.98 (4.8-10.8) K/uL RBC 5.29 (4.2-5.4) M/uL Hgb 16.4 H (12.0-16.0) g/dL Hct 47.5 H (37-47) % MCV 89.8 (80-100) fL MCH 31.0 (25-34) pg MCHC 34.5 (32-36) g/dL RDW Std Deviation 40.0 (36.4-46.3) fL RDW Coeff of Khushbu 12.3 (11.5-14.5) % Plt Count 226 (130-400) K/uL MPV 10.3 (7.4-10.4) fL Immature Gran % (Auto) 0.3 % Neut % (Auto) 66.0 % Lymph % (Auto) 25.7 % Chase % (Auto) 5.7 % Eos % (Auto) 2.1 % Baso % (Auto) 0.2 % Immature Gran # (Auto) 0.03 H (0.00-0.02) K/uL Neut # (Auto) 6.59 H (1.4-6.5) K/uL Lymph # (Auto) 2.56 (1.2-3.4) K/uL Chase # (Auto) 0.57 (0.11-0.59) K/uL Eos # (Auto) 0.21 (0-0.5) K/uL Baso # (Auto) 0.02 (0-0.2) K/uL Sodium (136-145) mmol/L Potassium (3.5-5.1) mmol/L Chloride (98-107) mmol/L Carbon Dioxide (21-32) mmol/L Anion Gap (3-11) BUN (7-18) mg/dl Creatinine (0.6-1.2) mg/dl Est Cr Clr Drug Dosing ml/min Est GFR ( Amer) Est GFR (Non-Af Amer) BUN/Creatinine Ratio (10-20) Glucose (70-99) mg/dl Calcium (8.5-10.1) mg/dl Magnesium (1.8-2.4) mg/dl Total Bilirubin (0.2-1) mg/dl AST (15-37) U/L ALT (12-78) U/L Alkaline Phosphatase (45-117) U/L Troponin I (0-0.045) ng/ml Total Protein (6.4-8.2) gm/dl Albumin (3.4-5.0) gm/dl Globulin (2.5-4.0) gm/dl Albumin/Globulin Ratio (0.9-2) Lipase (73-393) U/L Urine Color Urine Appearance (Clear) Urine pH (4.5-7.5) Ur Specific [place] (1.000-1.030) Urine Protein (Negative) Urine Glucose (UA) (Negative) Urine Ketones (Negative) Urine Blood (Negative) Urine Nitrite (Negative) Urine Bilirubin (Negative) Urine Urobilinogen (Negative) Ur Leukocyte Esterase (Negative) Urine WBC (Auto) (0-5) /hpf Urine RBC (Auto) (0-4) /hpf U Hyaline Cast (Auto) (0-5) /lpf U Epithel Cells (Auto) (0-5) /lpf Urine Bacteria (Auto) (Negative) Stl C. diff Tox B Gene (Neg) Medications Administered Current Inpatient Medications Acetaminophen (Tylenol) 650 mg PO Q4H PRN PRN Reason: pain/fever Stop: 05/08/19 19:08 Acetylcysteine (Mucomyst 20%) 5 ml INH Q12R SALMA Stop: 05/09/19 08:14 Last Admin: 04/09/19 11:01 Dose: 5 ml Documented by: Albuterol (Duoneb) 3 ml NEB QIDR SALMA Stop: 05/08/19 19:08 Last Admin: 04/09/19 11:01 Dose: 3 ml Documented by: Atorvastatin Calcium (Lipitor) 20 mg PO HS SALMA Stop: 05/08/19 20:59 Last Admin: 04/08/19 20:08 Dose: 20 mg Documented by: Enoxaparin Sodium (Lovenox) 40 mg SQ Q24H SALMA Stop: 05/08/19 20:59 Last Admin: 04/08/19 20:06 Dose: 40 mg Documented by: Guaifenesin (Mucinex) 600 mg PO Q12 SALMA Stop: 05/09/19 08:59 Last Admin: 04/09/19 11:10 Dose: 600 mg Documented by: Hydrochlorothiazide (Hctz) 12.5 mg PO DAILY SALMA Stop: 05/09/19 08:59 Last Admin: 04/09/19 08:23 Dose: 12.5 mg Documented by: Ceftriaxone Sodium 1,000 mg/ (Dextrose) 50 mls @ 100 mls/hr IV Q24H SALMA; Protocol Stop: 04/15/19 20:59 Last Infusion: 04/08/19 21:54 Dose: Infused Documented by: Doxycycline Hyclate 100 mg/ (Dextrose) 110 mls @ 50 mls/hr IV Q12H SALMA Stop: 04/15/19 20:59 Last Infusion: 04/09/19 10:30 Dose: Infused Documented by: Losartan Potassium (Cozaar) 100 mg PO DAILY SALMA Stop: 05/09/19 08:59 Last Admin: 04/09/19 08:23 Dose: 100 mg Documented by: Metoprolol Succinate (Toprol Xl) 50 mg PO HS SALMA Stop: 05/08/19 20:59 Last Admin: 04/08/19 20:06 Dose: 50 mg Documented by: Potassium Chloride (Klor-Con M20) 40 meq PO NOW STA Stop: 04/09/19 11:23 Prednisone (Prednisone) 40 mg PO DAILY SALMA Stop: 04/14/19 08:59 Last Admin: 04/09/19 08:23 Dose: 40 mg Documented by:
--- NOTE | 2019-04-09 14:23 | Electrocardiogram Report ---
Test Reason : Blood Pressure : / mmHG Vent. Rate : 063 BPM Atrial Rate : 063 BPM P-R Int : 148 ms QRS Dur : 136 ms QT Int : 470 ms P-R-T Axes : 071 -39 075 degrees QTc Int : 480 ms Normal sinus rhythm Left axis deviation Left bundle branch block Abnormal ECG When compared with ECG of 08-APR-2019 12:37, No significant change was found Confirmed by Xu Gonzalez ([id number]) on 04/09/2019 2:23:16 PM Referred By: REFERRED SELF Confirmed By:Xu Gonzalez
[2019-04-09] MEDS: ATORVASTATIN 20 MG TAB PO SCH (20:05)
[2019-04-09] MEDS: ENOXAPARIN INJ 40 MG/0.4 ML SYR SQ SCH (20:06)
[2019-04-09] MEDS: cefTRIAXone SODIUM 1,000 MG in DEXTROSE 5% 50 ML IV SCH (20:06)
[2019-04-09] MEDS: METOPROLOL SUCC 50MG EXT REL TAB PO SCH (20:16)
[2019-04-10] MEDS: DOCUSATE SODIUM/SENNA 50/8.6MG TAB PO SCH ×2 (06:05→07:49)
[2019-04-10] MEDS: ALBUT/IPRATROP 3MG/0.5MG NEB 3 ML VIAL NEB SCH ×3 (07:03→15:13)
[2019-04-10] MEDS: ACETYLCYSTEINE 20% INHAL SOLN 4ML ***DISPENSED BY RESP. INH SCH (07:04)
[2019-04-10 07:09] LABS: Hematocrit (blood only) 40.7 % (37-47); Hemoglobin 14.4 g/dL (12.0-16.0); Mean Corpuscular Hemoglobin 31.3 pg (25-34); Mean Corpuscular Hgb Conc 35.4 g/dL (32-36); Mean Corpuscular Volume 88.5 fL (80-100); Mean Platelet Volume 9.8 fL (7.4-10.4); Platelet Count 232 K/uL (130-400); RDW Coefficient of Variation 12.4 % (11.5-14.5); RDW Standard Deviation 39.8 fL (36.4-46.3); White Blood Count 12.29 K/uL (4.8-10.8)
[2019-04-10 07:34] LABS: Calcium 8.7 mg/dl (8.5-10.1); Creatinine Clr Calc Pharmacy 61.4 ml/min; Est GFR (Non-African American) 86.2; Magnesium 1.7 mg/dl (1.8-2.4); Potassium 3.8 mmol/L (3.5-5.1)
[2019-04-10 07:39] LABS: Troponin I 0.028 ng/ml (0-0.045)
[2019-04-10] MEDS: guaiFENesin 600 MG TABCR PO SCH (07:49)
[2019-04-10] MEDS: predniSONE 20 MG TAB PO SCH (07:49)
[2019-04-10] MEDS: hydroCHLOROthiazide 25 MG TAB PO SCH (07:49)
[2019-04-10] MEDS: LOSARTAN POTASSIUM 50 MG TAB PO SCH (07:50)
[2019-04-10] MEDS: DOXYCYCLINE HYCLATE 100 MG in DEXTROSE 5% 100 ML IV SCH (07:58)
--- NOTE | 2019-04-10 09:33 | Pulmonology Progress Note ---
Date of Service April 10, 2019 Assessment & Plan (1) Acute respiratory failure with hypoxia: -- Acute Hypoxic respiratory failure Likely sec to COPD exacerbation Continue with inhaled bronchodilators, steroids, antibiotics. Mucomyst and guaifenesin. Maintain SPO2 between 88 to 92% BiPAP nightly and as needed shortness of breath CTA chest 04/08/2019 personally reviewed: There is hyperinflation, no mediastinal lymphadenopathy noted, no clear infiltrate appreciated. Mild emphysema. There is foreign material appreciated in the trachea could be aspiration. --COPD/emphysema Patient is not on any inhalers at home Recommend discharging the patient on lama inhaler Patient will benefit from pulmonary follow-up for outpatient pulmonary function tests -- Active smoker Greater than [id number] smoking history Advised to quit Patient made aware that she will be given help and medication if if she wants. Recommend sending her to smoking cessation program. -- Possible aspiration Videofluoroscopy swallow eval ordered. Plan: Start tapering steroids 40 mg of prednisone for 3 days followed by 20 mg for 2 days. Doxycycline for total of 5 days. Discharge patient on lama inhaler. Patient is to follow-up with pulmonary to have outpatient PFTs. No further intervention from pulmonary perspective. Will sign off. Recall if needed. Please note the above document was generated using voice recognition software. It may contain grammatical, syntax or spelling errors. (2) COPD exacerbation: Subjective Patient seen and examined at bedside. No acute distress, no adverse events overnight. Patient said that she is feeling much better. No more shortness of breath. No more coughing. Denies any chest pain, not bringing up any phlegm. No nausea or vomiting, no headache. Good appetite Review of Systems Review of Systems: All systems reviewed & are unremarkable except as noted in HPI & below Physical Exam Physical Exam: Constitutional: No acute distress HEENT: EOMI, PERRLA Respiratory system: Decreased air entry bilaterally, no wheeze, no rhonchi, no crackles CVS: S1-S2 positive, no murmurs or gallops Abdomen: Soft, nontender, nondistended, positive bowel sounds x4 Extremities: +2 pulses bilaterally radialis/ dorsalis pedis, no cyanosis, no edema Neuro: Awake alert oriented x3 Psych: Normal mood and affect G/U: No Lua Patient saturating 91% on room air with heart rate of 99 at rest. Skin: no rashes, warm and dry Lymphatic: no cervical or axillary lymphadenopathy Results & Data ([facility]) Vital Signs (Past 12 Hours) Vital Signs Temp Pulse Pulse Resp BP BP Pulse Ox 04/10/19 07:21 36.8 C 73 18 147/77 H 96 04/10/19 07:04 65 18 95 04/10/19 04:52 36.7 C 73 18 148/83 H 92 04/10/19 03:59 74 04/09/19 23:51 36.7 C 74 18 132/71 95 04/10/19 06:23 04/10/19 06:23 PG Care Time/CCT Total # of Minutes Spent Total Time Spent with Patient: Total time spent is greater than 50% in co ordination of care (as documented) at patient's floor/unit and/or counseling patient: Coding Level of Care Code 71322 Subseq Hosp Care Lvl 3 Diagnoses Acute respiratory failure with hypoxia J96.01 COPD exacerbation J44.1
[2019-04-10] MEDS: MAGNESIUM SULFATE / D5W 1 GM/100 ML BAG IV SCH ×3 (10:34→12:27)
--- NOTE | 2019-04-10 14:46 | Discharge Summary ---
Date of Service April 10, 2019 Admission HPI Per Admitting Provider 78-year-old female who presents the ED for evaluation of cough and shortness of breath. Patient reports her symptoms began about 2 weeks ago. She reports shortness of breath minimal exertion. She reports a cough productive for white sputum. Patient denies chest pain. Today, patient reports she had some nausea and a couple of episodes of diarrhea. No bright bleeding per rectum or dark tarry stools. She reports some vomiting associated with the coughing. Denies fevers and chills. No lightheadedness, dizziness, diaphoresis, syncopal events. She denies any urinary symptoms. In ED, patient was found to be hypoxic on room air at 88%. This improved with 2 L of oxygen via nasal cannula. CTA chest was negative for pulmonary embolism however show some mucous plugging. Patient was given 2 nebulizer treatments, Solu-Medrol 60 mg, Zofran, IVF. Discharge Data Allergies Allergy/AdvReac Type Severity Reaction Status Date / Time codeine AdvReac Fainting Unverified 04/08/19 12:25 Consultations 04/08/19 16:26 ED Decision to Admit Stat 04/08/19 19:09 Consult Case Management - Discharge Planning Routine Consult Pulmonology Routine Ordered Studies 04/08/19 14:24 CT angio chest PE protocol Stat Hospital Course (1) COPD exacerbation: (2) Acute respiratory failure with hypoxia: -Admitted to [facility] with telemetry - secondary to likely COPD exacerb., and concern for poss. aspiration -Patient presenting from home with reports of cough and shortness of breath -Noted that patient had been on prednisone 5 mg daily for several years for psoriasis, this was recently discontinued about 3 weeks ago -Patient is an active smoker, 1 pack/day; no history of PFTs in the past however COPD is suspected -CTA chest negative for pulmonary embolism however showing mucus plugging -??? If symptoms caused by recent discontinuation of prednisone -Hypoxic on room air at 88%, this improved with 2 L of oxygen via nasal cannula; may need home O2 eval before discharge -S/p Solu-Medrol 60 mg in the ED, will continue the prednisone 40 mg p.o. daily starting tomorrow -Empiric IV ceftriaxone and doxycycline -Pulmonary toilet with nebs, flutter valve, incentive spirometer, chest PT -Pulmonary consult, input appreciated - started pt on acetylcystein, mucinex, fluoro to eval for aspiration, Maintain SPO2 between 88 to 92%, pt will need pulmonary outpt follow up and testing, plan to d/c on lama (tiotropium) (3) Nausea vomiting and diarrhea: -Seems to be some component of posttussive emesis -Currently denying any GI complaints -Full liquid diet, advance as tolerated -Stool for C. difficile and culture (4) LBBB (left bundle branch block): (5) QT prolongation: -EKG shows LBBB; no EKGs to compare to at time of admission - obtained EKG from outpt PCP, which shows NSR, no known dg. of LBBB, however most recent EKG several years ago -No reports of chest pain -mild trop elevation at 0.02, will repeat troponin and will order echo -QTC 490 -Daily EKG, avoid QTC prolonging agents (6) Hypertension: -BP currently controlled, continue losartan, metoprolol, HCTZ (7) Hyperlipidemia: -Continue statin Discharge Plan Discharge Items Patient Disposition: Home - Self-Care Reason For Visit: COPD EXACERBATION Discharge Diagnosis: Acute hypoxic respiratory failure, secondary to COPD exacerbation Activity: Resume your previous activity Activity Comment: as tolerated Non-emergency contact: Primary Care Provider Call non-emergency contact if: you have any medication questions and your symptoms worsen Follow-up/Referrals: Marjorie Presley [Primary Care Provider] - Diet: Regular Addtl Attending Provider Instructions: Follow-up with your primary care provider, appointment will be scheduled for you before you leave the hospital. It is also recommended to keep your outpatient pulmonary appointment, for pulmonary function tests. Start using inhaler, tiotropium, daily. Also continue using quaifenesin/Mucinex for the next 5 days. Take antibiotic, doxycycline, for next couple of days, take the first dose this evening. Also take steroid, prednisone, 40 mg for next 3 days, then take 20 mg for next 2 days. Continue to use spirometer. Pending Studies at Discharge: No Stand-Alone Forms: [employer], Smoking Cessation Medications and DC Order Prescriptions: New prednisone 20 mg Tablet 20 mg PO DAILY Qty: 8 RF: 0 guaifenesin [Mucinex] 600 mg Tablet Extended Release 12hr 600 mg PO Q12 5 Days Qty: 10 RF: 0 doxycycline hyclate 100 mg capsule 100 mg PO BID 3 Days Qty: 6 RF: 0 tiotropium bromide 18 mcg capsule, w/inhalation device 1 cap INH DAILY Qty: 30 RF: 0 Continued atorvastatin 20 mg tablet 20 mg PO HS RF: 0 metoprolol succinate 50 mg tablet extended release 24 hr 50 mg PO HS RF: 0 hydrochlorothiazide 12.5 mg capsule 12.5 mg PO DAILY RF: 0 hydroxyzine HCl 25 mg Tablet 25 mg PO HS PRN (Reason: Itching) RF: 0 ergocalciferol (vitamin D2) [Vitamin D2] 1,250 mcg (50,000 unit) Capsule 1,250 mcg PO FR RF: 0 losartan 100 mg tablet 100 mg PO DAILY RF: 0 clobetasol 0.05 % ointment 1 applic TOPICAL BID RF: 0 Discharge Orders: Discharge Order (Routine); Ordered 04/10/19 Ordered By: Neel Lutz Admission Data Admit Date/Time: 04/08/19 17:14 Attending Provider: Neel Lutz Admit Provider: Ulises Garcia Primary Care Provider: Marjorie Presley Other Providers: Ulises Garcia ; Araceli Lua Other Interventions: Discharge Summary Assessment (RN) Last Done: 04/10/19 14:17
--- NOTE | 2019-04-11 07:43 | Electrocardiogram Report ---
Test Reason : Blood Pressure : / mmHG Vent. Rate : 066 BPM Atrial Rate : 066 BPM P-R Int : 142 ms QRS Dur : 134 ms QT Int : 446 ms P-R-T Axes : 051 -41 065 degrees QTc Int : 467 ms Normal sinus rhythm Left axis deviation Left bundle branch block Abnormal ECG When compared with ECG of 09-APR-2019 06:27, No significant change was found Confirmed by Xu Gonzalez ([id number]) on 04/11/2019 7:43:10 AM Referred By: REFERRED SELF Confirmed By:Xu Gonzalez
== END 2019-04-10 15:54 | disposition home or self-care (01) | DRG 190 ==
LOC: ED 10:49 → SUATTDRO 17:14 → 2N 17:14